=== PATIENT | female | born 1980 | race African-American/Black ===

== ENCOUNTER 2021-10-21 18:43 | Emergency (ER) | payer OTHER, SELFPAY ==
--- NOTE | ~2021-10-21 | XR_ITS ---
EXAMINATION: XR abdomen/kub 1V DATE: 10/21/2021 19:44 INDICATION: Right abdominal pain. TECHNIQUE: A supine view of the abdomen on 2 radiographs was obtained. COMPARISON: None. FINDINGS: There are no dilated loops of bowel. There is a large volume of stool in the colon. There i s no visible urolithiasis. Calcifications in left pelvis are likely phleboliths. IMPRESSION: 1. Nonobstructive bowel gas pattern. Reviewed, dictated and finalized at location A. [employer] TECHNICIAN
[2021-10-21 18:56] VITALS: BP 108/69; PULSE 69; RESP 18; TEMP 36.8; O2SAT 100
--- NOTE | 2021-10-21 19:01 | ED.ABDPAIN ---
HPI - Abdominal Pain General Chief Complaint: Abdominal Pain Stated Complaint: abdominal pain History of Present Illness HPI narrative: This is a 41-year-old female comes in complaining of right-sided abdominal pain that radiates to the back patient denies having any fever but still has some infrequent nausea no vomiting noted. Patient denies any fever patient states she is able to eat and drink without any difficulty. Patient has had a history of some abdominal pain although she has had a EGD and a colonoscopy with no findings noted. Related Data Allergies Allergy/AdvReac Type Severity Reaction Status Date / Time sulfite Allergy Unknown Verified 10/21/21 19:09 Review of Systems Review of Systems: Right side abdominal pain radiates to the back All systems reviewed & are unremarkable except as noted in HPI and below PMFSH Comments At time as signature, I have reviewed and agree with nursing past medical, social, surgical and family history. Please see nursing chart for further information. There is no relevant family history pertinent to the presenting complaint. Exam Narrative: GENERAL:Well-appearing, well-nourished, and in no acute distress. HEAD:Normocephalic, atraumatic. EYES: PERRLA . ENT: Nares clear, no rhinorrhea or epistaxis. Mucous membranes moist. CHEST: Clear to auscultation. No respiratory distress. HEART: Regular rate and rhythm. Normal peripheral pulses. ABDOMEN: Soft, right upper quad painful and tender, nondistended, hyperactive active bowel sounds. EXTREMITIES: Normal range of motion. No edema. SKIN: Warm, dry, no rash. NEURO: No focal deficits. Alert and oriented x3. Course Course Emergency Course: KUB completed nonobstructive bowel gas seen in the abdomen Level of Care: Express Care Visit Vital Signs Vital signs: Vital Signs Temperature 98.2 F 10/21/21 18:56 Pulse Rate 69 10/21/21 18:56 Respiratory Rate 18 10/21/21 18:56 Blood Pressure 108/69 10/21/21 18:56 Pulse Oximetry 100 10/21/21 18:56 Temperature 98.2 F 10/21/21 18:56 Pulse Rate 69 10/21/21 18:56 Respiratory Rate 18 10/21/21 18:56 Blood Pressure 108/69 10/21/21 18:56 Pulse Oximetry 100 10/21/21 18:56 MDM - Abdominal Pain Differential Diagnosis Differential diagnosis: Likely abdominal pain, acute appendicitis, calculus of kidney, diverticulitis, gastroenteritis and small bowel obstruction Discharge Plan Discharge Clinical Impression: Constipation, Abdominal pain Patient Disposition: Home, Self-Care Condition: Stable Instructions: Antibiotic Form, Constipation (ED), Biliary Colic (ED), Abdominal Pain (ED) Additional Instructions: No serious cause of abdominal pain is found at this time. It is important to carefully watch for changes in the abdominal pain that might suggest a serious condition. See your doctor or return to the emergency department immediately if your condition gets worse. These symptoms suggest serious causes of abdominal pain: Your unable to walk easily or walking in a bent over position. You are experiencing pain in the right lower part of her abdomen. Stepping or jumping results in severe pain. The abdomen is hard and painful when you press on it. There is severe abdominal pain when coughing. You are vomiting or gagging. Vomiting is bloody or green or looks like chocolate or coffee. The belly looks very full or basic. You're experiencing severe pain every 3-20 minutes. Thank you Patient has been instructed that if she is to have a fever become nauseated vomiting she needs to go to an emergency Prescriptions: New polyethylene glycol 3350 [Miralax] 17 gram/dose powder 17 g PO BID Qty: 119 RF: 0 Follow-up/Referrals: UNKNOWN,DOCTOR [Primary Care Provider] - Stand Alone Forms: Work/School Release IP Time of Disposition: 19:58
== END 2021-10-21 20:04 | disposition home or self-care (01) ==
PROVIDERS: Emergency Provider Nurse Practitioner Family
DX: K59.00 Constipation, unspecified (principal)
CPT/HCPCS: 74018; 81003; 99203; G0463

== ENCOUNTER 2021-11-06 17:59 | Emergency (ER) | payer OTHER, SELFPAY ==
[2021-11-06 18:05] VITALS: BP 104/54; PULSE 74; RESP 16; TEMP 37.1; O2SAT 100
--- NOTE | 2021-11-06 18:24 | ED.URI ---
HPI - URI/Sore Throat General Chief Complaint: Upper Respiratory Infection Stated Complaint: sorethroat Time Seen by Provider: 11/06/21 18:28 Source: patient and RN notes reviewed Mode of arrival: ambulatory Limitations: no limitations History of Present Illness HPI Narrative: 41-year-old female presents with concern for sore throat, headache, fatigue. She reports symptoms started yesterday. Reports a history of strep throat. She denies nasal congestion, rhinorrhea, nausea, vomiting, diarrhea, cough, shortness of breath. Reports she has been vaccinated for COVID and she had a Covid infection in April 2021. She denies any known sick contacts and denies any [id number] intervention MD elicited complaint: sore throat Related Data Allergies Allergy/AdvReac Type Severity Reaction Status Date / Time sulfite Allergy Unknown Verified 11/06/21 18:22 Review of Systems Review of Systems: CONSTITUTIONAL: Reports malaise, fatigue. Denies chills, sweats, or fever. EYES: Denies visual changes, redness, or discharge. ENT: Denies rhinorrhea, congestion, sinus pain, otalgia. Reports sore throat. CARDIOVASCULAR: Denies chest pain, palpitations, or edema. RESPIRATORY: Denies cough. Denies dyspnea. GASTROINTESTINAL: Denies abdominal pain, nausea, vomiting, diarrhea SKIN: Denies rash or itching. MUSCULOSKELETAL: Denies myalgia. NEUROLOGIC: Reports headache. All systems reviewed & are unremarkable except as noted in HPI and below PMFSH Comments At time of signature, agree with nursing past medical, surgical, social and family history. There is no relevant family history pertinent to the presenting complaint Exam Narrative: GENERAL: Well-appearing, well-nourished, and in no acute distress. HEAD: Normocephalic EYES: PERRLA, conjunctivae clear ENT: Nares clear, clear discharge. Mucous membranes moist. TM pearly [place] with sharp light reflex bilaterally; no tragal tenderness. Oropharynx erythematous without lesions. Tonsils enlarged and without exudate, no drooling, no hoarseness, no trismus, uvula midline. NECK: Supple. No lymphadenopathy CHEST: Clear to auscultation, breath sounds equal. No wheezing, rhonchi, rales, or stridor. No respiratory distress, speaks in full sentences. HEART: Regular rate and rhythm. No murmur heard. SKIN: Warm, dry, no rash. NEURO: Alert and oriented x3. PSYCH: Normal mood and affect Course Course Emergency Course: Patient is aware of diagnosis, understands and agrees to treatment plan. Anticipatory guidance given. Patient agrees to follow-up as directed and is aware of reasons to seek care at the emergency department. Portions of this record may have been created with voice recognition software Level of Care: Express Care Visit Vital Signs Vital signs: Vital Signs Temperature 98.7 F 11/06/21 18:05 Pulse Rate 74 11/06/21 18:05 Respiratory Rate 16 11/06/21 18:05 Blood Pressure 104/54 L 11/06/21 18:05 Pulse Oximetry 100 11/06/21 18:05 Temperature 98.7 F 11/06/21 18:05 Pulse Rate 74 11/06/21 18:05 Respiratory Rate 16 11/06/21 18:05 Blood Pressure 104/54 L 11/06/21 18:05 Pulse Oximetry 100 11/06/21 18:05 Reviewed. MDM - URI/Sore Throat MDM Narrative Medical decision making narrative: Differential diagnosis considered: Vargas virus, strep pharyngitis, allergic rhinitis, upper respiratory tract infection, sinusitis, rhinosinusitis, nasopharyngitis. viral pharyngitis, otitis media, otitis externa, pneumonia, bronchitis, viral cough syndrome, viral syndrome, and influenza. Exam findings show no acute concerns or changes; patient is non-toxic appearing and is in no distress. Patient is appropriate for outpatient treatment and follow-up. Lab Data Attestation: I reviewed the patient's lab results. Critical Care Time Critical Care Time Critical Care Time: No Discharge Plan Discharge Clinical Impression: Acute tonsillitis Qualifiers: Pharyngitis/tonsillitis etiology: unspec
== END 2021-11-06 19:05 | disposition home or self-care (01) ==
PROVIDERS: Emergency Provider Nurse Practitioner
DX: J03.90 Acute tonsillitis, unspecified (principal); Z20.822 Contact with and (suspected) exposure to COVID-19
CPT/HCPCS: 87081; 87426; 87880; 99213; C9803; G0463